=== PATIENT | male | born 1975 | race Two or more races ===

== ENCOUNTER 2023-04-11 22:50 | Emergency (ER) | payer SELFPAY ==
[~2023-04-11] VITALS: Ht 172.7 cm; Wt 56.8 kg
[2023-04-11] MEDS ORDERED: DOXY-354 PO (23:26)
[2023-04-11] MEDS ORDERED: AMOX1TAB16 PO (23:26)
[2023-04-11] MEDS ORDERED: ACYC-138 PO (23:26)
[2023-04-11] MEDS ORDERED: ACYCLOVIR 200 MG CAPSULE PO ONE (23:30)
[2023-04-11] MEDS ORDERED: AMOX TR/POT CLAV 875 MG/125 MG TABLET PO ONE (23:30)
[2023-04-11] MEDS ORDERED: DOXYCYCLINE HYCLATE 100 MG TABLET PO ONE (23:30)
[2023-04-11] MEDS ORDERED: LIDOCAINE/PF 1% 2 ML VIAL IM ONE (23:30)
[2023-04-11] MEDS ORDERED: ACETAMINOPHEN 500 MG TABLET PO ONE (23:30)
[2023-04-11] MEDS ORDERED: CefTRIAXone SODIUM 1 GM/VIAL IM ONE (23:30)
[2023-04-12 00:33] VITALS: BP 133/81; PULSE 85; RESP 16; TEMP 99.7
== END 2023-04-12 00:35 | disposition home or self-care (01) ==
LOC: EMS 22:50
DX: B00.1 Herpesviral vesicular dermatitis (principal); K13.0 Diseases of lips
CPT/HCPCS: 99284; 96372; J0696; J3490